=== PATIENT | male | born 1950 | race Caucasian/White ===

== ENCOUNTER 2017-03-23 09:07 | Inpatient (IN) | payer OTHER ==
[~2017-03-23] VITALS: Ht 167.6 cm; Wt 53.5 kg
[~2017-03-23 09:07] MED LIST: AMLODIPINE BESY10 M1 PO; APAP/HYDROCODON1 T13 PO; ATENOLOL50 MG PO; ATI2I IV; ATIVAN1 MG PO; BACO TOP; CIPRO250 MG PO; COL100 PO; COZ25 PO; FLO4 PO; HIBICLENS118 ML TOP; LAC PO; LEVOFLOXACIN500 M1 PO; LOSARTAN POTASS25 M1; LOSARTAN POTASS50 M1 PO; MOR2I IV; MURO; NOR10 PO; NORCO; Normal Saline IV; PREDNISONE2.5 MG PO; PREDNISONE5 MG PO; PRI20 PO; PRILOSEC OTC20 M1 PO; ROC1PM IV; SODIUM CHLORIDE1 G2 PO; TEGRETOL200 MG PO; TENORMIN50 MG PO; TYL325 PO; TYLENOL PO; ZOFI IV
[2017-03-23 10:41] LABS: BASOPHIL % 0.4 % (0-2)
[2017-03-23 10:43] LABS: PLATELET COUNT 863 x10^3mcL (130-400); RED CELL DISTRIBUTION WIDTH 21.3 % (11.5-14.5)
[2017-03-23 10:44] LABS: UA SPECIFIC GRAVITY 1.015 (1.005-1.035); microscopic required? YES; urine erythrocyte 2+ (NEGATIVE)
[2017-03-23 11:02] LABS: CHOLESTEROL/HDL RATIO 3.7
[2017-03-23 11:05] LABS: FREE T4 1.06 ng/dL (0.76-1.46)
[2017-03-23 11:09] LABS: rbc morphology (normal/abnorm) ABNORMAL (NORMAL)
[2017-03-23 11:11] LABS: FREE THYROXINE INDEX 1.9 ug/dL (1.4-4.5); T4(THYROXINE) 4.5 ug/dL (4.7-13.3)
[2017-03-23 11:27] LABS: CALCIUM 8.2 mg/dL (8.5-10.1); CARBON DIOXIDE 25.7 mmol/L (21-32); CHLORIDE SERUM 103 mmol/L (98-107); CREATININE SERUM 1.2 mg/dL (0.7-1.3); GFR1 > 60 mL/min; GLUCOSE SERUM 85 mg/dL (74-106); SODIUM SERUM 140 mmol/L (136-145)
[2017-03-23 11:33] LABS: T3 TOTAL 0.61 ng/mL
[2017-03-23 11:34] LABS: ALBUMIN 1.7 g/dL (3.4-5.0); ALKALINE PHOSPHATASE 291 U/L (46-116); ALT/SGPT 21 U/L (16-63); AST/SGOT 92 U/L (15-37); BILIRUBIN TOTAL 0.2 mg/dL (0.20-1.00); MAGNESIUM 1.7 mg/dL (1.8-2.4); TOTAL PROTEIN, SERUM 6.2 g/dL (6.4-8.2)
[2017-03-23 11:52] VITALS: BP 132/75
[2017-03-23 14:35] VITALS: BP 131/75
[2017-03-23 18:02] VITALS: BP 122/62; BP 131/75
[2017-03-23 20:41] VITALS: BP 133/76
[2017-03-24 05:28] VITALS: BP 127/72
[2017-03-24 07:24] LABS: BASOPHIL % 0.4 % (0-2)
[2017-03-24 07:29] LABS: RED CELL DISTRIBUTION WIDTH 21.6 % (11.5-14.5)
[2017-03-24 07:32] LABS: PLATELET COUNT 743 x10^3mcL (130-400)
[2017-03-24 07:33] LABS: rbc morphology (normal/abnorm) ABNORMAL (NORMAL)
[2017-03-24 07:39] LABS: CHLORIDE SERUM 105 mmol/L (98-107); CREATININE SERUM 1.1 mg/dL (0.7-1.3); GFR1 > 60 mL/min; GLUCOSE SERUM 78 mg/dL (74-106); MAGNESIUM 2.2 mg/dL (1.8-2.4); PHOSPHOROUS 3.8 mg/dL (2.5-4.9); POTASSIUM SERUM 4.1 mmol/L (3.5-5.1); SODIUM SERUM 138 mmol/L (136-145)
[2017-03-24 08:40] VITALS: BP 130/72
[2017-03-24 13:46] VITALS: BP 123/82
[2017-03-24 16:45] VITALS: Ht 167.6 cm; Wt 53.5 kg
[2017-03-24 18:17] VITALS: BP 142/82
[2017-03-24 21:32] VITALS: BP 142/75
[2017-03-25 05:52] VITALS: BP 147/74
[2017-03-25 06:24] LABS: BASOPHIL % 1.3 % (0-2)
[2017-03-25 06:50] LABS: CARBON DIOXIDE 22.2 mmol/L (21-32); CHLORIDE SERUM 105 mmol/L (98-107); CREATININE SERUM 0.9 mg/dL (0.7-1.3); GFR1 > 60 mL/min; GLUCOSE SERUM 112 mg/dL (74-106); POTASSIUM SERUM 4.2 mmol/L (3.5-5.1); SODIUM SERUM 138 mmol/L (136-145)
[2017-03-25 06:57] LABS: RED CELL DISTRIBUTION WIDTH 22.3 % (11.5-14.5)
[2017-03-25 07:46] LABS: PLATELET COUNT 638 x10^3mcL (130-400); rbc morphology (normal/abnorm) ABNORMAL (NORMAL)
[2017-03-25 09:58] VITALS: BP 117/70
[2017-03-25 17:00] VITALS: BP 126/65
[2017-03-25 21:45] VITALS: BP 96/54
[2017-03-26 06:04] VITALS: BP 121/64
[2017-03-26 06:26] LABS: CALCIUM 7.8 mg/dL (8.5-10.1); CARBON DIOXIDE 25.3 mmol/L (21-32); CHLORIDE SERUM 106 mmol/L (98-107); CREATININE SERUM 1.2 mg/dL (0.7-1.3); GFR1 > 60 mL/min; GLUCOSE SERUM 77 mg/dL (74-106); POTASSIUM SERUM 4.4 mmol/L (3.5-5.1); SODIUM SERUM 142 mmol/L (136-145)
[2017-03-26 06:43] LABS: BASOPHIL % 0.3 % (0-2)
[2017-03-26 07:14] LABS: PLATELET COUNT 614 x10^3mcL (130-400); RED CELL DISTRIBUTION WIDTH 21.8 % (11.5-14.5)
[2017-03-26 09:37] VITALS: BP 110/62
[2017-03-26 12:09] LABS: rbc morphology (normal/abnorm) ABNORMAL (NORMAL)
[2017-03-26 13:28] VITALS: BP 115/64
[2017-03-26 17:07] VITALS: BP 136/69
[2017-03-26 19:51] LABS: RED CELL DISTRIBUTION WIDTH 21.7 % (11.5-14.5)
[2017-03-26 19:52] LABS: PLATELET COUNT 637 x10^3mcL (130-400)
[2017-03-26 20:02] LABS: BAND NEUTROPHIL 1 % (0-10); BASOPHIL 1 % (0-2); METAMYELOCTE 1 % (0-2); MONOCYTE 10 % (0-7); MYELOCYTE 1 % (0-2); SEGMENTED NEUTROPHILS 69 % (37-75); rbc morphology (normal/abnorm) ABNORMAL (NORMAL)
[2017-03-26 20:06] VITALS: BP 130/65
[2017-03-27 06:21] LABS: BASOPHIL % 0.3 % (0-2)
[2017-03-27 06:30] VITALS: BP 98/55
[2017-03-27 06:45] LABS: CALCIUM 7.8 mg/dL (8.5-10.1); CARBON DIOXIDE 25.7 mmol/L (21-32); CHLORIDE SERUM 107 mmol/L (98-107); CREATININE SERUM 1.2 mg/dL (0.7-1.3); GFR1 > 60 mL/min; GLUCOSE SERUM 89 mg/dL (74-106); POTASSIUM SERUM 4.5 mmol/L (3.5-5.1); SODIUM SERUM 140 mmol/L (136-145)
[2017-03-27 06:54] LABS: RED CELL DISTRIBUTION WIDTH 22.2 % (11.5-14.5)
[2017-03-27 08:48] VITALS: BP 123/70
[2017-03-27 10:30] VITALS: BP 98/55
[2017-03-27 13:35] LABS: rbc morphology (normal/abnorm) ABNORMAL (NORMAL)
[2017-03-27 13:47] LABS: PLATELET COUNT 561 x10^3mcL (130-400)
[2017-03-27 13:49] LABS: rbc morphology (normal/abnorm) ABNORMAL (NORMAL)
[2017-03-27 15:02] LABS: BASOPHIL % 0.4 % (0-2)
[2017-03-27 15:14] LABS: PLATELET COUNT 553 x10^3mcL (130-400)
[2017-03-27 15:38] LABS: rbc morphology (normal/abnorm) ABNORMAL (NORMAL)
[2017-03-27 18:09] VITALS: BP 111/59
[2017-03-27 21:22] VITALS: BP 130/64
[2017-03-27 21:48] LABS: RED BLOOD CELLS 2.46 M/mm3 (4.52-5.90)
[2017-03-27 22:05] LABS: IRON 26 ug/dL (65-170); TOTAL IRON BINDING CAPACITY 76 ug/dL (250-450)
[2017-03-28 05:44] VITALS: BP 121/68
[2017-03-28 06:26] LABS: BASOPHIL % 0.4 % (0-2)
[2017-03-28 06:34] LABS: CARBON DIOXIDE 25.3 mmol/L (21-32); CHLORIDE SERUM 103 mmol/L (98-107); CREATININE SERUM 1.2 mg/dL (0.7-1.3); GFR1 > 60 mL/min; GLUCOSE SERUM 108 mg/dL (74-106); POTASSIUM SERUM 4.2 mmol/L (3.5-5.1); SODIUM SERUM 136 mmol/L (136-145)
[2017-03-28 06:51] LABS: PLATELET COUNT 570 x10^3mcL (130-400); rbc morphology (normal/abnorm) ABNORMAL (NORMAL)
[2017-03-28 08:50] VITALS: BP 126/67
[2017-03-28] MEDS ORDERED: HIBICLENS118 ML TOP (14:16)
[2017-03-28] MEDS ORDERED: BACDS PO (14:16)
[2017-03-28] MEDS ORDERED: LAC PO (14:16)
[2017-03-28] MEDS ORDERED: BACO TOP (14:16)
[2017-03-28] MEDS ORDERED: FER300 PO (14:16)
[2017-03-28 14:17] VITALS: BP 126/67
[2017-03-28] MEDS ORDERED: [UNRECOGNIZED DRUG - CODE] IV (14:47)
[2017-03-29 05:20] LABS: TRANSFERRIN 75 mg/dL (200-370)
== END 2017-03-28 15:53 | DRG 698 ==
LOC: ED 09:07 → DU 10:22 → MU 10:22 → DU 11:06 → MU 03-24 10:47
PROVIDERS: Emergency Medicine; Family Medicine; Radiology Diagnostic Radiology; ADMIT Family Medicine
PROC: 0T9430Z Drainage of Left Kidney Pelvis with Drainage Device, Percutaneous Approach (ICD-10-PCS; principal; 2017-03-25 14:00)
DX: T83.022A Displacement of nephrostomy catheter, initial encounter (principal); N17.0 Acute kidney failure with tubular necrosis; E43 Unspecified severe protein-calorie malnutrition; N13.1 Hydronephrosis with ureteral stricture, not elsewhere classified; C79.31 Secondary malignant neoplasm of brain; C79.51 Secondary malignant neoplasm of bone; Z68.1 Body mass index [BMI] 19.9 or less, adult; N39.0 Urinary tract infection, site not specified; D68.69 Other thrombophilia; E11.65 Type 2 diabetes mellitus with hyperglycemia; E11.51 Type 2 diabetes mellitus with diabetic peripheral angiopathy without gangrene; C61 Malignant neoplasm of prostate; E83.42 Hypomagnesemia; D63.8 Anemia in other chronic diseases classified elsewhere; R31.9 Hematuria, unspecified; M47.894 Other spondylosis, thoracic region; Z66 Do not resuscitate; E83.51 Hypocalcemia; Y73.2 Prosthetic and other implants, materials and accessory gastroenterology and urology devices associated with adverse incidents; Y92.129 Unspecified place in nursing home as the place of occurrence of the external cause; Z22.322 Carrier or suspected carrier of Methicillin resistant Staphylococcus aureus; Z92.21 Personal history of antineoplastic chemotherapy; Z92.3 Personal history of irradiation
CPT/HCPCS: 82962; 83880; 84439; C1769; C1884; C1887; J0696; J1580; J1956; J2001; J2270; J2405; J2543; J3475; J7030; J7040; J7042; J7050; P9016; Q0092; Q0163; Q9967